=== PATIENT | male | born 2000 | race Two or more races ===

== ENCOUNTER 2024-10-01 21:52 | Emergency (ER) | payer MEDICAID, SELFPAY ==
[2024-10-01 21:56] VITALS: BMI 19.0
[2024-10-01 22:08] VITALS: BP 103/70; PULSE 100; RESP 20; TEMP 36.8; O2SAT 98
--- NOTE | 2024-10-01 22:13 | EDNOTE_ITS ---
ED Wound/Laceration-RME/HPI General Chief Complaint: Wound/Laceration Stated Complaint: lac to R hand from knife Time Seen by Provider: 10/01/24 22:11 Source: patient Arrival date/time: 10/01/24 21:52 24-year-old male presents emergency department complaining of laceration to the right hand with knife when cutting vegetables. Patient is unsure if he is up-to-date with tetanus vaccine. Mode of arrival: ambulatory Limitations: no limitations Related Data Allergies Allergy/AdvReac Type Severity Reaction Status Date / Time NKA Allergy Unknown Uncoded 04/05/03 21:54 Review of Systems Review of Systems Systems Reviewed: All systems reviewed, normal except as documented Constitutional Constitutional: Reports system reviewed and no additional complaints, except as documented, Denies body ache(s), Denies chills and Denies fever(s) Eyes Eyes: Reports system reviewed and no additional complaints, except as documented and Denies change in vision ENT Ears, Nose, Mouth, and Throat: Reports system reviewed and no additional complaints, except as documented, Denies disequilibrium, Denies dizziness, Denies sore throat and Denies vertigo Cardiovascular Cardiovascular: Reports system reviewed and no additional complaints, except as documented, Denies chest pain and Denies dyspnea Respiratory Respiratory: Reports system reviewed and no additional complaints, except as documented, Denies chest congestion, Denies cough and Denies dyspnea Gastrointestinal Gastrointestinal: Reports system reviewed and no additional complaints, except as documented, Denies abdominal pain, Denies nausea and Denies vomiting Musculoskeletal Musculoskeletal: Reports system reviewed and no additional complaints, except as documented, Denies abnormal gait and Denies arthralgias Integumentary/Breasts Skin/Breast: Reports system reviewed and no additional complaints, except as documented, Denies erythema, Denies rash and Reports wounds Neurologic Neurologic: Reports system reviewed and no additional complaints, except as documented, Denies abnormal gait, Denies disequilibrium, Denies dizziness and Denies vertigo Past Medical History Past Medical History CARDIAC: Negative Cardiac Disorders RESPIRATORY: Negative Asthma GENITOURINARY: Negative Renal Disease ENDOCRINE: Negative Diabetes Mellitus Type 2 HEMATOLOGIC: Negative Sickle Cell Disease Social History SMOKING STATUS: Never smoker ED Exam General Limitations: Present no limitations General appearance: Present alert and in no apparent distress Head Head exam: Present atraumatic Eye Eye exam: Present normal appearance, PERRL and EOMI ENT ENT exam: Present normal exam, normal oropharynx and mucous membranes moist Neck Neck exam: Present normal inspection, full ROM and trachea midline Chest Chest inspection: Present normal inspection and symmetric chest wall rise Respiratory Respiratory exam: Present normal lung sounds bilaterally Cardiovascular Cardiovascular exam: Present regular rate, normal rhythm and normal heart sounds Abdominal Exam Abdominal exam: Present soft and normal bowel sounds Extremities Exam Extremities exam: Present normal inspection and full ROM Expanded Upper Extremity Exam Hand L/R front image: 2 1. laceration Back Exam Back exam: Present normal inspection and full ROM Neurological Exam Neurological exam: Present alert, oriented X3 and CN II-XII intact Psychiatric Psychiatric exam: Present normal affect and normal mood Skin Skin exam: Present warm, dry, intact and normal color Course Quality Measures none Orders Category Date Time Status Set Up Suture Tray STAT Care 10/01/24 22:12 Completed Wound Care [Wound Care] NOW Care 10/01/24 22:12 Completed Lidocaine 1% 20 ml [Xylocaine 1% 20 ML] Med 10/01/24 22:12 Discontinued 20 ml INFL X1 ONE Tet,Diphth,Pertuss(Acell)-Tdap [Boostrix Vacc] Med 10/01/24 22:12 Discontinued 0.5 ml IMI .ONCE ONE Vital Signs Vital signs: Vital Signs Temperature 98.2 F 10/01/24 22:08 Pulse Rate 100 10/01/24 22:08 Respiratory Rate 20 10/01/24 22:08 Blood Pressure 103/70 10/01/24 22:08 Pulse Oximetry (%) 98 10/01/24 22:08 Oxygen Delivery Method Room Air 10/01/24 22:08 98% room air within normal limits Procedures -ED Laceration Laceration 1: Site: hand Side (If applicable): right Size (cm): 4 Description: linear Depth: simple, single layer Local Anesthetic: lidocaine 1% Amount of anesthesia used (mL): 1 Pre-repair: wound explored and irrigated extensively Skin layer closed with: nylon Size (cm): 5-0 Number of sutures: 6 Technique: simple, interrupted Wound / Laceration MDM Narrative MDM Narrative:: 24-year-old male presents emergency department complaining of laceration to the right hand with knife when cutting vegetables. Patient is unsure if he is up-to-date with tetanus vaccine. Tetanus vaccine was provided. Laceration was cleansed with copious amounts of normal saline. 1% lidocaine was used as local anesthetic using 5-0 Ethilon 6 simple interrupted sutures were used to approximate wound. Patient tolerated well. No ligamentous or tendon injury patient affected extremity full active range of motion and neurovascularly intact. Patient data External records reviewed:: [facility] previous records Clinical information provided by:: patient Social determinants that could affect healthcare access:: none Patient has the following chronic illnesses:: None How is presenting disease/condition affected by chronic disease/condition?: no chronic disease Evaluation data The following diagnostics were reviewed and interpreted by me:: other (specify) (None) Lab and/or radiology exams considered but not ordered:: None Interpretation Summary: None Medications / Prescriptions Medications or Prescriptions considered but not ordered:: Ordered Medication administrations:: Medication Administration History Discontinued Medications Diphtheria/Tetanus/Acell Pertussis (Diphth,Pertuss(Acell),Tet Vac 0.5 Ml Vial) 0.5 ml IMi .ONCE ONE Stop: 10/01/24 22:13 Last Admin: 10/01/24 22:58 Dose: 0.5 ml Documented By: BEAR Lidocaine HCl (Lidocaine Hcl 1% 20 Ml Vial) 20 ml INFL X1 ONE Stop: 10/01/24 22:13 Last Admin: 10/01/24 23:01 Dose: 20 ml Documented By: BEAR Give Consultations Consultation(s) initiated? (list below): No Diagnosis Wound Differential Diagnosis: laceration Most likely diagnosis given after review of the tests above:: Laceration of hand Admission Indicated Admission indicated?: not indicated Admission Request Was there a request for admission?: No Disposition Plan Disposition Plan: Discharge Discharge Attestation Discharge Attestation: The patient and all family members were given an opportunity to ask questions and understood the discharge instructions. Discharge instructions specifically effects, indications for sooner follow up or return to the emergency department, and the expected course of current diagnosis. Patient condition: Stable Discharge Plan Plan Patient Disposition: HOME (Self Care) Disposition Comment: Stable Problem List Clinical Impression: Laceration of hand Patient/Caregiver Discharge Instructions Discharge Activity: activity as tolerated Education Materials: ED Laceration: All Closures Additional Instructions: Keep dressing on for the first 24 hours. May wash with warm water and soap. Keep clean and dry and open to air after 24 hours and no longer bleeding. Return to the emergency department or primary care provider's office in 7 to 10 days for suture removal. Monitor for any signs of infection return to emergency department for any worsening symptoms or as needed. Print Language: Moz[place]ican Stand Alone Forms: [employer] Award Info., Work/School Release, Patient Portal Info Letter PA/PSYCH COORDINATOR Supervising Physician PA/PSYCH COORDINATOR Supervising Physician: Dr. Ron
[2024-10-01] MEDS: DIPHTH,PERTUSS(ACELL),TET VAC 0.5 ML VIAL IMi (22:58)
[2024-10-01] MEDS: LIDOCAINE HCL 1% 20 ML VIAL INFL (23:01)
== END 2024-10-01 23:35 | disposition home or self-care (01) ==
LOC: SERX 23:11
PROVIDERS: Emergency Provider Emergency Medicine; PCP Physician Assistant
DX: S61.411A Laceration without foreign body of right hand, initial encounter (principal); W26.0XXA Contact with knife, initial encounter; Y93.G1 Activity, food preparation and clean up; Z23 Encounter for immunization
CPT/HCPCS: 12002; 90471; 90715; 99283; J3490

== ENCOUNTER 2024-10-08 11:24 | Emergency (ER) | payer MEDICAID, SELFPAY ==
[2024-10-08 11:25] VITALS: BMI 19.8
[2024-10-08 11:47] VITALS: BP 133/73; PULSE 79; RESP 17; TEMP 37; O2SAT 100; BMI 19.3
[2024-10-08 12:12] VITALS: BP 99/70; PULSE 71; RESP 16; TEMP 37; O2SAT 98
--- NOTE | 2024-10-08 12:12 | EDNOTE_ITS ---
<Statement entered by Leann El MD - 10/10/24 06:44> As co-signing physician, I was present and available for consult prn. I concur with the plan and care as documented by the midlevel provider. ED Wound/Laceration-RME/HPI General Chief Complaint: Wound Recheck / Suture Removal Stated Complaint: NEED SUTURES REMOVD RIGHT HAND Time Seen by Provider: 10/08/24 12:05 Source: patient Arrival date/time: 10/08/24 11:24 This is a 24 y m here for suture removal. no other concerns Related Data Allergies Allergy/AdvReac Type Severity Reaction Status Date / Time No Known Allergies Allergy Verified 10/08/24 11:26 Review of Systems Review of Systems Systems Reviewed: All systems reviewed, normal except as documented Narrative Review of Systems: Gen: No fever, no chills, no weight loss EYES: No discharge, no visual changes, no pain HEENT: No ear pain, no congestion, no sore throat PULM: No shortness of breath, no cough, no congestion CV: No chest pain, no dyspnea on exertion, no palpitations GI: No nausea, no vomiting, no diarrhea, no pain, no constipation : No frequency, no urgency,? no dysuria Musc/skel: No joint pain, no back pain Skin: No rash? Psyc: No hallucinations, no depression Heme/Lymph: No easy bleeding or bruising tendencies Neuro: No weakness, no headache ED Exam Narrative Physical exam: General: Sittiing in Exam table in no acute distress, answering questions appropriately HENT: normocephalic, atraumatic, EOMI, PERRLA, moist mucous membranes Chest: chest wall is nontender Cardiac: regular rate and rhythm, normal S1 and S2, no murmurs, rubs, or gallops, capillary refill ?2 seconds Pulmonary: clear to auscultation bilaterally, no wheezing, crackles, or rhonchi Abdominal: active bowel sounds, soft, nontender, nondistended Neuro: A&OX3, CN II-XII intact, sensation grossly intact bilaterally in UE and LE. Skin: no rashes, no ecchymosis, well lac to palm, no signs of infection. Ext: no lower extremity edema Course Quality Measures none Vital Signs Vital signs: Vital Signs Temperature 98.6 F 10/08/24 11:47 Pulse Rate 79 02/09/25 11:47 Respiratory Rate 17 10/08/24 11:47 Blood Pressure 133/73 H 10/08/24 11:47 Pulse Oximetry (%) 100 10/08/24 11:47 Oxygen Delivery Method Room Air 10/08/24 11:47 Wound / Laceration MDM Narrative MDM Narrative:: suture removed. pt tolarated well. no signs of infection Patient data External records reviewed:: [facility] previous records Clinical information provided by:: patient Social determinants that could affect healthcare access:: none Patient has the following chronic illnesses:: no How is presenting disease/condition affected by chronic disease/condition?: no chronic disease Evaluation data The following diagnostics were reviewed and interpreted by me:: other (specify) Lab and/or radiology exams considered but not ordered:: no Interpretation Summary: n/a Medications / Prescriptions Medications or Prescriptions considered but not ordered:: no Medication administrations:: no Consultations Consultation(s) initiated? (list below): No Diagnosis Wound Differential Diagnosis: laceration, abscess, abrasion and avulsion of skin Most likely diagnosis given after review of the tests above:: suture removal Admission Indicated Admission indicated?: not indicated Admission Request Was there a request for admission?: No Disposition Plan Disposition Plan: Discharge Discharge Attestation Discharge Attestation: The patient and all family members were given an opportunity to ask questions and understood the discharge instructions. Discharge instructions specifically effects, indications for sooner follow up or return to the emergency department, and the expected course of current diagnosis. Patient condition: Stable Discharge Plan Plan Patient Disposition: HOME (Self Care) Patient condition on transfer: Stable Problem List Clinical Impression: Encounter for removal of sutures Patient/Caregiver Discharge Instructions Discharge Activity: activity as tolerated Education Materials: Suture Care Additional Instructions: Please keep area clean and dry. Wash with regular soap pat dry. Follow-up with your primary doctor for wound recheck. Return to the emergency department this any worsening symptoms any condition. Print Language: [place] Islander Stand Alone Forms: [employer] Award Info., Patient Portal Info Letter PA/CARLOS MANUEL Supervising Physician PA/CARLOS MANUEL Supervising Physician: dr el
== END 2024-10-08 12:21 | disposition home or self-care (01) ==
LOC: SERX 12:45
PROVIDERS: Emergency Provider Emergency Medicine
DX: Z48.02 Encounter for removal of sutures (principal)
CPT/HCPCS: 99282